=== PATIENT | male | born 1940 | race Hispanic/Latino ===

== ENCOUNTER 2016-11-18 15:44 | Emergency (ER) | payer MEDICARE, BC ==
[2016-11-18 15:53] VITALS: BMI 43.2
[2016-11-18 15:57] VITALS: TEMP 98
--- NOTE | 2016-11-18 16:38 | ED PDOC ---
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 Patient reports left hand and bilateral feet swelling for approximately 1 week. He notes no change in right hand swelling. Patient denies any fever, chills, nausea, vomiting, abdominal pain, chest pain, shortness of breath or any other complaints. PMD: Dr. Greenberg Hand Stone Polisher: Dr. Velásquez and Dr. Mei Urologist: Dr. May Time/Duration: Other (few days) Symptom Course: Unchanged Quality: Other Context: Home Past Medical History - Provider Review Nursing Documentation Reviewed: Yes - Infectious Disease Hx of Infectious Diseases: None - Tetanus Immunization Tetanus Immunization: Unknown - Cardiac Hx Cardiac Disorders: Yes Hx Cardiac Arrhythmia: Yes Hx Circulatory Problems: Yes Hx Peripheral Edema: Yes - Pulmonary Hx Sleep Apnea: Yes - Neurological HX Cerebrovascular Accident: Yes (Forgetful) - Musculoskeletal/Rheumatological Hx Falls: No - Genitourinary/Gynecological Hx Hematuria: Yes - Psychiatric Hx Depression: No Hx Emotional Abuse: No Hx Physical Abuse: No Hx Substance Use: No - Surgical History Hx Cardiac Catheterization: Yes Hx Coronary Stent: Yes Other/Comment: right shoulder sx 11/07/16 - Anesthesia Hx Anesthesia: Yes Hx Anesthesia Reactions: No Hx Malignant Hyperthermia: No - Suicidal Assessment Feels Threatened In Home Enviroment: No Family/Social History - Physician Review Nursing Documentation Reviewed: Yes Family/Social History: No Known Family HX Smoking Status: Former Smoker Hx Alcohol Use: No Hx Substance Use: No Hx Substance Use Treatment: No Allergies/Home Meds Allergies/Adverse Reactions: Allergies ciprofloxacin [From Cipro] Adverse Reaction (Verified 11/18/16 15:53) VOMITING ciprofloxacin HCl [From Cipro] Adverse Reaction (Verified 11/18/16 15:53) VOMITING sulfa Adverse Reaction (Uncoded 11/18/16 15:53) DIARRHEA tape Adverse Reaction (Uncoded 11/18/16 15:53) RASH Home Medications: Home Meds Medication Instructions Recorded Confirmed Atorvastatin [Lipitor] 10 mg PO DAILY 03/14/14 11/18/16 Metoprolol Succinate 25 mg PO DAILY 03/14/14 11/18/16 Warfarin [Coumadin] 5 mg PO DAILY 03/14/14 11/18/16 Aspirin [Ecotrin] 81 mg PO DAILY 05/07/16 11/18/16 amLODIPine [Norvasc] 0 mg PO DAILY 11/18/16 11/18/16 Review of Systems - Physician Review All systems were reviewed & negative as marked: Yes - Review of Systems Constitutional: absent: Fevers, Night Sweats Respiratory: absent: SOB Cardiovascular: absent: Chest Pain Gastrointestinal: absent: Abdominal Pain, Nausea, Vomiting Musculoskeletal: Other (bilateral hand and feet swelling) Physical Exam Vital Signs Reviewed: Yes Vital Signs Temp Pulse Resp BP Pulse Ox 11/18/16 19:00 68 18 121/68 98 11/18/16 17:30 64 18 118/65 98 11/18/16 15:56 98.0 F 63 17 116/66 97 Temperature: Afebrile Blood Pressure: Normal Pulse: Regular Respiratory Rate: Normal Appearance: Positive for: Well-Appearing, Non-Toxic, Comfortable Pain Distress: None Mental Status: Positive for: Alert and Oriented X 3 - Systems Exam Head: Present: Atraumatic, Normocephalic Pupils: Present: PERRL Extroacular Muscles: Present: EOMI Conjunctiva: Present: Normal Mouth: Present: Moist Mucous Membranes Neck: Present: Normal Range of Motion. No: JVD, Bruit Respiratory/Chest: Present: Clear to Auscultation, Good Air Exchange. No: Respiratory Distress, Accessory Muscle Use Cardiovascular: Present: Regular Rate and Rhythm, Normal S1, S2. No: Murmurs Abdomen: Present: Normal Bowel Sounds. No: Tenderness, Distention, Peritoneal Signs Back: Present: Normal Inspection Upper Extremity: Present: Normal ROM (in bilateral wrist), NORMAL PULSES, Swelling (Bilateral hand swelling), Neurovascularly Intact, Other (Decreased ROM in fingers). No: Cyanosis, Erythema, Temperature Abnormalties, Deformity Lower Extremity: Present: Edema (Left lower extremity greater than right), Normal ROM, Neurovascularly Intact, Other (Trace pedial pulses, Chronic venous changes in left lower extremity). No: Erythema, Deformity, Temperature Abnormalties Neurological: Present: GCS=15, CN II-XII Intact, Speech Normal Skin: Present: Warm, Dry, Normal Color. No: Rashes Psychiatric: Present: Alert, Oriented x 3, Normal Insight, Normal Concentration Medical Decision Making ED Course and Treatment: 11/18/16 16:27 Impression: A 76 year old male with bilateral hand and feet swelling. Differential Diagnosis included but are not limited to: ARF vs CHF vs DVT Plan: -- Duplex upper extremity ultrasound -- Duplex lower extremity ultrasound -- Chest xray -- EKG -- Labs -- Urinalysis -- Reassess and disposition Progress Notes: Report Date : 11/18/2016 18:52:27 Procedure: Duplex upper extremity ultrasound Dictator : Alex Mabry MD IMPRESSION: 1. No sonographic evidence for deep venous thrombosis in the visualized segments of both upper strategies. Report Date : 11/18/2016 18:44:38 Procedure: Duplex lower extremity ultrasound Dictator : Alex Mabry MD IMPRESSION: Apparent chronic, post- changes in the mid to distal femoral veins bilaterally. No acute DVT is appreciated. 11/18/16 19:13 EKG shows atrial fibrillation at 52 BPM. Interpreted by me. 11/18/16 20:[address] Greenberg who will offer patient admission. Patient would rather go home and have the work up as an outpatient. Patient continues to denies any chest pain or shortness of breathe. No urinary symptoms. He will be discharged home with PMD f/u. He will also f/u with Renal and Cardio as per Dr. Greenberg. - Lab Interpretations Lab Results: 11/18/16 19:15 11/18/16 19:15 Lab Results 11/18/16 19:15: Sodium 140, Potassium 3.8, Chloride 106, Carbon Dioxide 28, Anion Gap 10, BUN 20, Creatinine 0.8, Est GFR ( Amer) > 60, Est GFR (Non- Af Amer) > 60, Random Glucose 85, Calcium 9.2, Lactate Dehydrogenase 517, Total Creatine Kinase 120, Troponin I 0.02, NT-Pro-B Natriuret Pep 972 H 11/18/16 19:15: PT 21.5 H, INR 1.99 H, APTT 34.5 H 11/18/16 19:15: WBC 6.5 D, RBC 4.19, Hgb 12.5 L, Hct 36.7 L, MCV 87.6, MCH 29.8 , MCHC 34.1, RDW 15.0 H, Plt Count 192, MPV 9.1, Gran % 58.7, Lymph % (Auto) 23.6, [place] % (Auto) 10.5 H, Eos % (Auto) 6.4 H, Baso % (Auto) 0.8, Gran # 3.79, Lymph # 1.5, [place] # 0.7 H, Eos # 0.4, Baso # 0.05 I have reviewed the lab results: Yes - RAD Interpretation Radiology Orders: 11/18/16 16:57 CXR [CHEST PORTABLE] [RAD] Stat 11/18/16 16:59 DUPLEX LOWER EXTRM VEIN BILAT [US] Stat DUPLEX UPPER EXTRM VEIN BILAT [US] Stat - Scribe Statement The provider has reviewed the documentation as recorded by the Scribe Chasidy Gallardo Provider Scribe Attestation: All medical record entries made by the Scribe were at my direction and personally dictated by me. I have reviewed the chart and agree that the record accurately reflects my personal performance of the history, physical exam, medical decision making, and the department course for this patient. I have also personally directed, reviewed, and agree with the discharge instructions and disposition. Disposition/Present on Arrival - Present on Arrival Any Indicators Present on Arrival: No History of DVT/PE: No History of Uncontrolled Diabetes: No Urinary Catheter: No History of Decub. Ulcer: No History Surgical Site Infection Following: None - Disposition Have Diagnosis and Disposition been Completed?: Yes Diagnosis: Leg swelling, Swelling of both upper extremities Disposition: HOME/ ROUTINE Disposition Time: 20:18 Patient Plan: Discharge Patient Problems: Current Active Problems Problem Status Onset Leg swelling Acute Swelling of both upper extremities Acute Condition: GOOD Discharge Instructions (ExitCare): Leg Edema (ED) Additional Instructions: Ms Green, thank you for letting us take care of you today. Your provider was Dr. Jiménez. You were treated for Hand and Leg Swelling The emergency medical care you received today was directed at your acute symptoms. If you were prescribed any medication, please fill it and take as directed. It may take several days for your symptoms to resolve. Return to the Emergency Department if your symptoms worsen, do not improve, or if you have any other problems. Please contact your doctor or call one of the physicians/clinics you have been referred to that are listed on the Patient Visit Information form that is included in your discharge packet. Bring any paperwork you were given at discharge with you along with any medications you are taking to your follow up visit. Our treatment cannot replace ongoing medical care by a primary care provider (PCP) outside of the emergency department. Thank you for allowing the [facility] team to be part of your care today. If you had an X-Ray or CT scan: A Radiologist will review the ED reading if any change in treatment is needed we will contact you. If you had a blood, urine, or wound culture: It will take several days for the results, if any change in treatment is needed we will contact you. If you had an STI test: It will take 48 hours for the results. Please call after 1 week if you have not heard back. Referrals: Renetta Greenberg MD [Primary Care Provider] - Follow up with primary Forms: WORK NOTE, [facility] (Tajik)
[2016-11-18 17:36] VITALS: O2SAT 98
--- NOTE | 2016-11-18 18:46 | US ---
HISTORY: Leg pain and swelling. Evaluate for DVT PHYSICIAN(S): Alex Collado MD. TECHNIQUE: Duplex sonography and color-flow Doppler with graded compression were used to evaluate the deep venous systems of both lower extremities. The exam is very limited by edema P FINDINGS: There appears to be incomplete compressibility of the mid to distal femoral veins bilaterally. This could represent post phlebitic change. No acute DVT is appreciated. The remainder of the deep venous system bilaterally is normal and compressible. The tibial veins are not well seen. IMPRESSION: Apparent chronic, post- changes in the mid to distal femoral veins bilaterally. No acute DVT is appreciated.
--- NOTE | 2016-11-18 18:54 | US ---
HISTORY: Arm pain and swelling. Evaluate for deep venous thrombosis. PHYSICIAN(S): Alex Collado MD. FINDINGS: The visualized internal jugular veins are sonographically normal and compressible. No evidence of obstruction or thrombus this is seen. The visualized segments of the subclavian veins are patent with normal waveforms. No sonographic evidence of obstruction or thrombosis is seen. The visualized deep venous systems of both upper extremities proximally are sonographically normal and compressible. IMPRESSION: 1. No sonographic evidence for deep venous thrombosis in the visualized segments of both upper strategies.
[2016-11-18 19:22] LABS: ADD MANUAL DIFF? NO
[2016-11-18 19:30] LABS: BASO # 0.05 K/mm3 (0.0-2.0); BASO % 0.8 % (0.0-3.0); EOS # 0.4 (0.0-0.7); EOS % 6.4 % (1.5-5.0); GRAN # 3.79 (1.4-6.5); GRAN % 58.7 % (50.0-68.0); HEMATOCRIT 36.7 % (42.0-52.0); LYMPH # 1.5 (1.2-3.4); LYMPH % 23.6 % (22.0-35.0); MEAN CELL VOLUME 87.6 fL (80.0-105.0); MEAN CORPUSCULAR HEMOGLOBIN 29.8 pg (25.0-35.0); MEAN CORPUSCULAR HGB CONC 34.1 g/dl (31.0-37.0); MEAN PLATELET VOLUME 9.1 fl (7.0-11.0); MONO # 0.7 (0.1-0.6); MONO % 10.5 % (1.0-6.0); PLATELET COUNT 192 10^3/uL (120.0-450.0); WHITE BLOOD COUNT 6.5 10^3/ul (4.5-11.0)
[2016-11-18 19:40] LABS: BLOOD UREA NITROGEN 20 mg/dL (7-21); CALCIUM 9.2 mg/dL (8.4-10.5); CARBON DIOXIDE 28 mmol/L (21-33); CHLORIDE 106 mmol/L (98-107); GFR AFRICAN-AMERICAN > 60; GLUCOSE,RANDOM 85 mg/dL (70-110); POTASSIUM 3.8 mmol/L (3.6-5.0); SODIUM 140 mmol/L (132-148)
[2016-11-18 19:51] LABS: TROPONIN I 0.02 ng/mL
[2016-11-18 20:10] LABS: INR 1.99 (0.93-1.08); PARTIAL THROMBOPLASTIN TIME 34.5 Seconds (23.7-30.8)
[2016-11-18 20:36] VITALS: BP 120/78; PULSE 66; RESP 16
--- NOTE | 2016-11-19 08:17 | RAD ---
HISTORY: chf COMPARISON: 11/28/2014 FINDINGS: LUNGS: No active pulmonary disease. PLEURA: No significant pleural effusion identified, no pneumothorax apparent. CARDIOVASCULAR: Normal. OSSEOUS STRUCTURES: Right glenohumeral arthroplasty VISUALIZED UPPER ABDOMEN: Normal. OTHER FINDINGS: None. IMPRESSION: No active disease.
--- NOTE | 2016-11-19 12:45 | CARD ---
APPROVED REPORT EKG Measurement Heart [id number] <Conclusion> Atrial fibrillation with slow ventricular response Abnormal ECG
== END 2016-11-18 20:32 | disposition home or self-care (01) ==
LOC: ED 15:44
DX: M79.89 Other specified soft tissue disorders (principal); Z86.718 Personal history of other venous thrombosis and embolism; Z79.01 Long term (current) use of anticoagulants; I48.91 Unspecified atrial fibrillation; Z95.5 Presence of coronary angioplasty implant and graft; Z86.73 Personal history of transient ischemic attack (TIA), and cerebral infarction without residual deficits; Z87.891 Personal history of nicotine dependence